=== PATIENT | male | born 1965 | race Caucasian/White ===

== ENCOUNTER 2023-05-12 13:30 | Emergency (ER) | payer BC ==
[2023-05-12 13:54] VITALS: BP 124/86; PULSE 90; RESP 18; TEMP 98.9; BMI 29.6
[2023-05-12 14:43] LABS: HEMATOCRIT 42.4 % (35.4-49); HEMOGLOBIN 14.4 G/dL (11.7-16.9); MCH 28.7 pg (25.7-33.7); MEAN CELL VOLUME 84.4 fl (80-96); MEAN PLT VOLUME 8.2 fl (7.5-11.1); PLATELET COUNT 266.8 10^3/uL (134-434); RBC 5.02 10^6/uL (4.00-5.60); RDW 14.3 % (11.9-15.9); WHITE BLOOD COUNT 11.8 10^3/uL (4.0-10.8)
[2023-05-12 14:50] LABS: ALBUMIN 4.6 g/dl (3.4-5.0); BILIRUBIN,TOTAL 0.4 mg/dl (0.2-1); CALCIUM 9.6 mg/dl (8.5-10.1); CREATININE 0.9 mg/dl (0.6-1.3); POTASSIUM 4.2 mmol/L (3.5-5.1); SGOT/AST 11.6 U/L (15-37); SGPT/ALT 11.6 U/L (7-52)
[2023-05-12 15:01] LABS: PLATELET ESTIMATE ADEQUATE
[2023-05-12] MEDS ORDERED: KETOROLAC TROMETHAMINE 30 MG/1 ML VIAL IVPUSH ONE (16:05)
[2023-05-12] MEDS ORDERED: KETOROLAC TROMETHAMINE 15 MG/ML VIAL ONE (16:06)
[2023-05-12] MEDS ORDERED: DEXAMETHASONE SOD PHOSPHATE 10 MG/1 ML VIAL IVPUSH ONE (16:13)
[2023-05-12] MEDS ORDERED: DEXAMETHASONE SOD PHOSPHATE/PF 10 MG/ML SDV ONE (16:16)
[2023-05-12 16:35] LABS: THROAT:GRP A STREP NOT DETECTED (NOTDETECTED)
== END 2023-05-12 16:30 | disposition home or self-care (01) ==
LOC: FER 13:30
PROC: 3E033GC Introduction of Other Therapeutic Substance into Peripheral Vein, Percutaneous Approach (ICD-10-PCS; principal; 2023-05-12)
PROC: 3E0333Z Introduction of Anti-inflammatory into Peripheral Vein, Percutaneous Approach (ICD-10-PCS; 2023-05-12)
DX: M54.2 Cervicalgia (principal); R22.1 Localized swelling, mass and lump, neck; R07.0 Pain in throat; Z20.822 Contact with and (suspected) exposure to COVID-19
CPT/HCPCS: 0241U-QW; 36415; 70491-TC; 80053; 85027; 87651; 99285-25; J1100; Q9967